=== PATIENT | female | born 1985 | race Hispanic/Latino ===

== ENCOUNTER 2017-12-13 13:40 | Emergency (ER) | payer OTHER ==
[2017-12-13] MEDS ORDERED: Sodium Chloride 0.9% 1,000 ML IV STA (14:37)
--- NOTE | 2017-12-13 14:54 | ED PDOC ---
HPI: Female Pain Time Seen by Provider: 12/13/17 13:45 Chief Complaint (Nursing): Female Genitourinary Chief Complaint (Provider): Vaginal Bleeding History Per: Patient History/Exam Limitations: no limitations Onset/Duration Of Symptoms: Days (12/13/17) Current Symptoms Are (Timing): Still Present Quality Of Discomfort: Cramping Associated Symptoms: denies: Fever Additional Complaint(s): 32 year old female is 14 weeks via IVF presents to the ED complaining of vaginal bleeding. States she was running and started having a vaginal bleed as well as slight cramping. States the cramping has resolved now but she is still bleeding. Denies fever, allergies or pain currently. Patient is G1 and P0. PMD: Naomi Ash Abnormal Vaginal Bleeding: Yes : 1 Para: 0 Past Medical History Reviewed: Historical Data, Nursing Documentation, Vital Signs Vital Signs: Last Vital Signs Temp 97 F L 12/13/17 13:50 Pulse 86 12/13/17 13:50 Resp 18 12/13/17 13:50 BP 114/70 12/13/17 13:50 Pulse Ox 97 12/13/17 13:50 - Medical History PMH: No Chronic Diseases - Surgical History Surgical History: No Surg Hx - Family History Family History: States: Unknown Family Hx - Social History Current smoker - smoking cessation education provided: No Alcohol: None Drugs: Denies - Home Medications Home Medications: Ambulatory Orders Medication Instructions Recorded Nitrofurantoin Macrocrystals 100 mg PO BID #14 cap 12/13/17 [Macrobid] - Allergies Allergies/Adverse Reactions: Allergies Allergy/AdvReac Type Severity Reaction Status Date / Time No Known Allergies Allergy Verified 12/13/17 13:50 Review of Systems ROS Statement: Except As Marked, All Systems Reviewed And Found Negative Constitutional: Negative for: Fever Genitourinary Female: Positive for: Vaginal Bleeding Physical Exam - Reviewed Nursing Documentation Reviewed: Yes Vital Signs Reviewed: Yes - Physical Exam Appears: Positive for: Non-toxic, No Acute Distress Head Exam: Positive for: ATRAUMATIC, NORMAL INSPECTION, NORMOCEPHALIC Skin: Positive for: Normal Color, Warm, Dry Eye Exam: Positive for: EOMI, Normal appearance, PERRL ENT: Positive for: Normal ENT Inspection Neck: Positive for: Normal, Painless ROM, Supple. Negative for: Decreased ROM Cardiovascular/Chest: Positive for: Regular Rate, Rhythm. Negative for: Murmur Respiratory: Positive for: Normal Breath Sounds. Negative for: Decreased Breath Sounds, Accessory Muscle Use, Respiratory Distress Gastrointestinal/Abdominal: Positive for: Normal Exam, Bowel Sounds, Soft. Negative for: Tenderness, Guarding, Rebound Pelvic Exam: Positive for: Active Bleeding (no clots noted. 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 Negative for: L CVA Tenderness, R CVA Tenderness Extremity: Positive for: Normal ROM. Negative for: Tenderness, Pedal Edema, Deformity Neurologic/Psych: Positive for: Alert, Oriented (x3). Negative for: Motor/ Sensory Deficits - Laboratory Results Result Diagrams: 12/13/17 16:11 12/13/17 16:11 - ECG O2 Sat by Pulse Oximetry: 97 (RA) Pulse Ox Interpretation: Normal Medical Decision Making Medical Decision Making: Time: 1417 Initial Impression: vaginal bleed in rule out miscarraige versus subchorionic hemmorage Initial Plan: --BBK Type and Screen --BETA-HCG, Quantitative --CBC w/ differential --Normal Saline 999mls/hr --Urine C&S [Urine Culture] --Urinalysis --OB Transvaginal US --Reevaluation Time: 1550 PROCEDURE: OB Pelvic Ultrasound HISTORY: , vaginal bleeding COMPARISON: None available. FINDINGS: UTERUS: Gestational sac: Single intrauterine gestation. CRL measures 6.9 cm corresponding to 13 weeks and 1 day of gestational age. Heart rate: 153 bpm. age (Ultrasound estimated): 13 weeks and 1 day Amy-gestational hemorrhage: None. Date of delivery (Ultrasound estimated) : 06/19/2018 Uterus measures 12.6 x 8.3 x 8.1 cm. Normal in size and appearance. Placenta is fundal. There is a curvilinear anechoic area in the placenta anteriorly. CERVIX: Measures cm. Long and closed. No cervical abnormality seen. RIGHT OVARY: Not visualized. LEFT OVARY: Not visualized. FREE FLUID: None. OTHER FINDINGS: None. IMPRESSION: Single live intrauterine gestation with mean gestational age of 13 weeks and 1 day. The estimated date of delivery by ultrasound is 06/19/2018. Placenta is fundal. Curvilinear cystic area in the placenta anteriorly, which may represent placental vela, abruptio placenta is also a consideration with the stated clinical history of vaginal bleeding. discuseed results of U S and blood work with patient. Time: 1620 Spoke Farhad LIFE SCIENCES DIRECTOR and she reviwed US. States if her hemoglobin is stable, patient can go home. She needs to follow-up with her finishing manager. Spoke to patient at bedside and explained everything. She is requesting copies to bring to her doctor. given. pt with borderline UTI given abx. 12/16/17 838 am called pt to follow up and inform her that T and S was cancelled and to be sure that she is RH positive. She states she thinks she is, and that she will follow up with her doctor about that specifically. but that overall she is doing better. and did follow up with her dr upon dc from the ER. Scribe Attestation: Documented by Abhishek Christian, acting as a scribe for Marcela Gamboa MD Provider Scribe Attestation: All medical record entries made by the Scribe were at my direction and personally dictated by me. I have reviewed the chart and agree that the record accurately reflects my personal performance of the history, physical exam, medical decision making, and the department course for this patient. I have also personally directed, reviewed, and agree with the discharge instructions and disposition. Disposition - Clinical Impression Clinical Impression: Vaginal bleeding during - Patient ED Disposition Is Patient to be Admitted: No Counseled Patient/Family Regarding: Studies Performed, Diagnosis, Need For Followup - Disposition Disposition: Routine/Home Disposition Time: 16:00 Condition: IMPROVED Additional Instructions: follow up with your finishing manager tomorrow please rest, no rigorous activity or sex return to the ED with any worsening or concerning symptoms Prescriptions: Nitrofurantoin Macrocrystals [Macrobid] 100 mg PO BID #14 cap Instructions: Urinary Tract Infection, Adult (DC), Bleeding With (DC) Forms: [facility] ([facility])
--- NOTE | 2017-12-13 15:52 | US ---
PROCEDURE: OB Pelvic Ultrasound HISTORY: , vaginal bleeding COMPARISON: None available. FINDINGS: UTERUS: Gestational sac: Single intrauterine gestation. CRL measures 6.9 cm corresponding to 13 weeks and 1 day of gestational age. Heart rate: 153 bpm. age (Ultrasound estimated): 13 weeks and 1 day Amy-gestational hemorrhage: None. Date of delivery (Ultrasound estimated) : 06/19/2018 Uterus measures 12.6 x 8.3 x 8.1 cm. Normal in size and appearance. Placenta is fundal. There is a curvilinear anechoic area in the placenta anteriorly. CERVIX: Measures cm. Long and closed. No cervical abnormality seen. RIGHT OVARY: Not visualized. LEFT OVARY: Not visualized. FREE FLUID: None. OTHER FINDINGS: None. IMPRESSION: Single live intrauterine gestation with mean gestational age of 13 weeks and 1 day. The estimated date of delivery by ultrasound is 06/19/2018. Placenta is fundal. Curvilinear cystic area in the placenta anteriorly, which may represent placental vela, abruptio placenta is also a consideration with the stated clinical history of vaginal bleeding.
[2017-12-13 16:02] LABS: URINE BILIRUBIN NEGATIVE (NEGATIVE); URINE CLARITY TURBID (Clear); URINE GLUCOSE (UA) 50 mg/dL (Normal); URINE PROTEIN 100 mg/dL (NEGATIVE); URINE UROBILINOGEN 0.2-1.0 mg/dL (0.2-1.0)
[2017-12-13 16:07] LABS: URINE BLOOD LARGE (NEGATIVE)
[2017-12-13 16:08] LABS: URINE LEUKOCYTE ESTERASE SMALL Leu/uL (Negative)
[2017-12-13 16:09] LABS: URINE COLOR RED (YELLOW)
[2017-12-13 16:10] LABS: URINE BACTERIA RARE (<OCC)
[2017-12-13 16:17] LABS: BASO % 0.2 % (0.0-2.0); EOS % 0.1 % (0.0-4.0); HEMOGLOBIN 13.8 g/dL (12.0-16.0); LYMPH # 1.8 K/uL (1.0-4.3); LYMPH % 11.3 % (20.0-40.0); MEAN CELL VOLUME 91.2 fl (81.0-99.0); MEAN CORPUSCULAR HEMOGLOBIN 30.2 pg (27.0-31.0); MEAN CORPUSCULAR HGB CONC 33.1 g/dL (33.0-37.0); MEAN PLATELET VOLUME 9.1 fl (7.2-11.7); MONO # 0.7 K/uL (0.0-0.8); MONO % 4.2 % (0.0-10.0); NEUT # 13.3 K/uL (1.8-7.0); NEUT % 84.2 % (50.0-75.0); RBC 4.57 Mil/uL (3.80-5.20); RED CELL DISTRIBUTION WIDTH 13.4 % (11.5-14.5); WHITE BLOOD COUNT 15.8 K/uL (4.8-10.8)
[2017-12-13 16:31] LABS: ALB/GLOB RATIO 1.3 (1.0-2.1); ALBUMIN 3.9 g/dL (3.5-5.0); CALCIUM 9.3 mg/dL (8.4-10.2); GFR AFRICAN-AMERICAN > 60; GFR NON-AFRICAN AMERICAN > 60
[2017-12-13 16:37] LABS: ALT/SGPT 42 U/L (9-52); AST/SGOT 46 U/L (14-36); BLOOD UREA NITROGEN 11 mg/dl (7-17)
[2017-12-13 16:53] VITALS: BP 110/72; PULSE 85; RESP 20; TEMP 98.6
[2017-12-16 08:29] VITALS: O2SAT 97
== END 2017-12-13 16:57 | disposition home or self-care (01) ==
LOC: H.ER 13:40
DX: O20.9 Hemorrhage in early pregnancy, unspecified (principal); Z3A.13 13 weeks gestation of pregnancy; Z36.9 Encounter for antenatal screening, unspecified
CPT/HCPCS: 76815; 80053; 81003; 84702; 85025; 87086; 99285; J7030